=== PATIENT | female | born 1935 | race Caucasian/White ===

== ENCOUNTER → 2018-05-23 | Outpatient (CLI) | payer MEDICARE, OTHER | END | disposition home or self-care (01) | LOC: PCVCCLINIC 15:42 | PROVIDERS: ATTEND Internal Medicine Cardiovascular Disease | DX: R06.02 Shortness of breath (principal); I10 Essential (primary) hypertension; R53.83 Other fatigue; I48.0 Paroxysmal atrial fibrillation; E78.5 Hyperlipidemia, unspecified; M79.604 Pain in right leg; M79.605 Pain in left leg; Z86.79 Personal history of other diseases of the circulatory system; Z78.0 Asymptomatic menopausal state; Z87.891 Personal history of nicotine dependence | CPT/HCPCS: 36415; 80061; 93005; G0463 ==

== ENCOUNTER → 2018-06-16 | Outpatient (CLI) | payer MEDICARE, OTHER ==
[~2018-06-16] MED LIST: REGADENOSON 0.4 MG/5 ML DISP.SYRIN. IV ONE
--- NOTE | 2018-06-16 17:25 | PCVCIMAG ---
APPROVED REPORT Study performed: 06/16/2018 11:16:37 EXAM: Comprehensive 2D, Doppler, and color-flow Echocardiogram Patient Location: Echo lab Status: routine BSA: 1.68 HR: 73 bpmBP: 136/64 mmHg Rhythm: Atrial Fibrillation Other Information Study Quality: Adequate Risk Factors: Cardiac Risk Factors: HTN Indications Atrial Fibrillation 2D Dimensions IVSd: 14.31 (7-11mm) LVDd: 40.86 mm PWd: 10.74 (7-11mm)Ascending Ao: 37.11 (22-36mm) LVDs: 28.88 (25-40mm) Left Atrium: 41.71 (27-40mm) Aortic Root: 33.72 mm LV Single Plane 4CH: 53.58 % LV Single Plane 2CH: 51.10 % Biplane EF: 50.8 % Volumes Left Atrial Volume (Systole) Single Plane 4CH: 53.34 mLSingle Plane 2CH: 58.22 mL LA ESV Index: 33.00 mL/m2 Aortic Valve AoV Peak [place].: 1.83 m/s AO Peak Gr.: 13.80 mmHgLVOT Max P.88 mmHg LVOT Max V: 1.10 m/s AI Vmax: 4.70 m/s AI [place]: 3.03 m/s2 AI PHT: 449.35 ms Mitral Valve E/A Ratio: 0.7 MV Decel. Time: 299.45 ms MV E Max [place].: 0.98 m/s MV A [place].: 1.34 m/s MV Max [place].: 6.14 m/s MV Mean [place].: 4.92 m/s IVRT: 103.81 ms Pulmonary Valve PV Peak [place].: 0.93 m/sPV Peak Gr.: 3.45 mmHg Pulmonary Vein P Vein S: 0.26 m/sP Vein A: 0.40 m/s P Vein D: 0.40 m/sP Vein A Dur.: 141.9 msec P Vein S/D Ratio: 0.65 Tricuspid Valve TR Peak [place].: 2.96 m/s TR Peak Gr.: 35.24 mmHg Left Ventricle The left ventricle is normal size. There is normal LV segmental wall motion. Mild concentric left ventricular hypertrophy. Left ventricular systolic function is normal. The left ventricular ejection fraction is within the normal range. LVEF is 55%. Grade I - abnormal relaxation pattern. Right Ventricle The right ventricle is normal size. The right ventricular systolic function is normal. Atria Left atrium is mildly dilated. Right atrium is mildly dilated. Aortic Valve Aortic valve is bicuspid with calcified raphe. Mild to moderate aortic regurgitation. There is no aortic valvular stenosis. Mitral Valve The mitral valve is normal in structure. Moderate mitral regurgitation. No evidence of mitral valve stenosis. Tricuspid Valve The tricuspid valve is normal in structure. Mild tricuspid regurgitation with PAP of 42 mmHg. Pulmonic Valve The pulmonary valve is normal in structure. Trace pulmonic regurgitation. Great Vessels The aortic root is normal in size. IVC is normal in size and collapses >50% with inspiration. Pericardium There is no pericardial effusion. There is no pleural effusion. <Conclusion> The left ventricle is normal size. Mild concentric left ventricular hypertrophy. LVEF is 55%. Grade I - abnormal relaxation pattern. The right ventricle is normal size. Left atrium is mildly dilated. Right atrium is mildly dilated. Aortic valve is bicuspid with calcified raphe. Mild to moderate aortic regurgitation. Moderate mitral regurgitation. Mild tricuspid regurgitation with PAP of 42 mmHg. The aortic root is normal in size. There is no pericardial effusion.
--- NOTE | 2018-06-16 20:21 | PCVCIMAG ---
EXAM: BILATERAL LOWER EXTREMITY ARTERIAL DUPLEX INDICATION: Peripheral Arterial Disease. Leg pain. FINDINGS: Right Leg: Common femoral and profunda femoral arteries are patent. 40-50% stenosis distal [place] superficial femoral artery. The popliteal artery is patent. The anterior tibial, peroneal, and posterior tibial arteries are patent. Left Leg: Common femoral and profunda femoral arteries are patent. Increased systolic velocity 447 cm/s proximal [place] popliteal artery consistent with 90% stenosis. Superficial femoral artery is patent. The anterior tibial, peroneal, and posterior tibial arteries are patent. IMPRESSION: 40-50% stenosis distal [place] right superficial femoral artery. 90% stenosis proximal [place] left popliteal artery. LOC:[id number]
--- NOTE | 2018-06-17 10:39 | PCVCIMAG ---
APPROVED REPORT Imaging Protocol: Rest Tc-99m/Stress Tc-99m 1 day Study performed: 06/16/2018 12:45:08 Indication: PAF, SOA, Progressive Excercise Intolerance and Fatigue Patient Location: Out-Patient Stress Nurse: Shannon Morrow RN, Teresa Brandon RN NM Tech:ADI Weaver Ht: 5 ft 4 in Wt: 140 lbs BSA: 1.68 m2 HR: 90 bpm BP: 142/72 mmHg BMI: 24.0 Rhythm: Sinus Rhythm, PVC Medical History Medical History: Age, Hyperlipidemia, HTN, Former Smoker Medications: Aspirin, Amlodipine, Prilosec, Remeron Allergies: No known drug allergies Exercise History: Sedentary Physical Disabilities: Toes Amputation Resting Data Rest SPECT myocardial perfusion imaging was performed in supine position 45 minutes following the intravenous injection of 10.8 mCi of Tc-99m Sestamibi. Time of rest injection: 1200 Date: 06/16/2018 Administration Route: IV Administration Site: Right AC Pharmacologic Stress Pharmacologic stress test was performed by injecting Regadenoson 0.4 mg IV push over 10-15 seconds immediately followed by the intravenous injection of 34.8 mCi of Tc-99m Sestamibi. Time of stress injection: 1315 Date: 06/16/2018 Administration Route: IV Administration Site: Right AC Gated Stress SPECT was performed 45 minutes after stress injection. The images were gated to evaluate regional wall motion and calculate left ventricular ejection fraction. Stress Test Details Stress Test: Pharmacologic stress testing performed using 0.4 mg of regadenoson per 5 mL given IV over 10 seconds. Reason for pharmacologic stress test: Toes amputated. HRMax Heart Rate (APMHR): 135 bpm Resting HR: 90 bpmTarget HR (85% APMHR): 114 bpm Max HR Achieved: 111 bpm % of APMHR: 82 Recovery HR: 90 bpm BP Resting BP: 142/72 mmHg Max BP: 173/71 mmHg Recovery BP: 139/68 mmHg ECG Resting ECG: Sinus Rhythm Stress ECG: Sinus Rhythm ST Change: None Arrhythmia: PVC's Recovery ECG: Sinus Rhythm Clinical Reason for Termination: Completed protocol Stress Symptoms: Abdominal Discomfort, Dyspnea, Lightheaded Symptoms resolved with caffeine. Stress ECG Conclusion ECG: Non-ischemic Study Quality Study: Good Study Data Post stress, the left ventricular ejection was 67%.. SSS: 2 SRS: 3 SDS: 1 TID = 1.09. 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 Post stress, the left ventricular ejection was 67%. No prior study available for comparison. Interpreted by: Tima Gautam MD Electronically Approved: 06/16/2018 20:02:54 <Conclusion> ECG: Non-ischemic
== END | disposition home or self-care (01) ==
LOC: PCVCIMAG 10:15
PROVIDERS: ATTEND Internal Medicine Cardiovascular Disease
DX: I08.3 Combined rheumatic disorders of mitral, aortic and tricuspid valves (principal); I48.0 Paroxysmal atrial fibrillation; I73.9 Peripheral vascular disease, unspecified; I10 Essential (primary) hypertension; R53.83 Other fatigue; Z87.891 Personal history of nicotine dependence
CPT/HCPCS: 78452; 93017; 93306; 93925; A9500; J2785

== ENCOUNTER → 2018-07-24 | Outpatient (CLI) | payer MEDICARE, OTHER | END | disposition home or self-care (01) | LOC: PCVCCLINIC 12:30 | PROVIDERS: ATTEND Internal Medicine Cardiovascular Disease | DX: I25.10 Atherosclerotic heart disease of native coronary artery without angina pectoris (principal); I10 Essential (primary) hypertension; I73.9 Peripheral vascular disease, unspecified; E78.00 Pure hypercholesterolemia, unspecified; I48.0 Paroxysmal atrial fibrillation; R53.83 Other fatigue; I48.91 Unspecified atrial fibrillation; Z79.01 Long term (current) use of anticoagulants | CPT/HCPCS: 36415; 85610 ==

== ENCOUNTER → 2018-10-10 | Outpatient (CLI) | payer MEDICARE, OTHER ==
--- NOTE | 2018-10-10 12:17 | PCVCIMAG ---
EXAM: BILATERAL CAROTID DUPLEX INDICATION: Carotid Occlusive Disease. FINDINGS: Doppler Measurements (centimeters per second): RIGHT: Peak CCA-52, Peak ECA-67, Diastolic ICA-21, Peak ICA-68, ICA/CCA Ratio-1.3. LEFT: Peak CCA-72, Peak ECA-111, Diastolic ICA-20, Peak ICA-82, ICA/CCA Ratio-1.1. RIGHT CAROTID: The carotid bulb has mild plaque. The proximal internal carotid artery shows <40% stenosis. The common carotid artery shows no significant stenosis. The external carotid artery shows no significant stenosis. LEFT CAROTID: The carotid bulb has mild plaque. The proximal internal carotid artery shows <40% stenosis. The common carotid artery shows no significant stenosis. The external carotid artery shows no significant stenosis. Antegrade flow in both vertebral arteries. IMPRESSION: <40% stenosis of the right internal carotid artery with mild plaque. <40% stenosis of the left internal carotid artery with mild plaque. LOC:[id number]
--- NOTE | 2018-10-10 12:19 | PCVCIMAG ---
EXAM: LEFT LOWER EXTREMITY ARTERIAL DUPLEX INDICATION: Peripheral Arterial Disease. Leg pain. FINDINGS: Left Leg: Common femoral and profunda femoral arteries are patent. Superficial femoral artery and popliteal arteries are patent. Previous site of intervention upper popliteal artery remains patent. Unchanged occlusion distal posterior tibial artery. The anterior tibial and peroneal arteries are patent. IMPRESSION: No significant superficial femoral artery or popliteal artery stenoses. Previous site of intervention upper left popliteal artery remains patent. Unchanged occlusion distal left posterior tibial artery. LOC:[id number]
== END | disposition home or self-care (01) ==
LOC: PCVCIMAG 11:00
PROVIDERS: ATTEND Nuclear Medicine Nuclear Cardiology
DX: I65.23 Occlusion and stenosis of bilateral carotid arteries (principal); I70.202 Unspecified atherosclerosis of native arteries of extremities, left leg; I77.9 Disorder of arteries and arterioles, unspecified; I25.10 Atherosclerotic heart disease of native coronary artery without angina pectoris; I10 Essential (primary) hypertension; E78.00 Pure hypercholesterolemia, unspecified
CPT/HCPCS: 93880; 93926; G0463

== ENCOUNTER → 2018-10-27 | Outpatient (CLI) | payer MEDICARE, OTHER | END | disposition home or self-care (01) | LOC: PCVCCLINIC 10:00 | PROVIDERS: ATTEND Internal Medicine Cardiovascular Disease | DX: I48.0 Paroxysmal atrial fibrillation (principal); I25.10 Atherosclerotic heart disease of native coronary artery without angina pectoris; I73.9 Peripheral vascular disease, unspecified; I10 Essential (primary) hypertension; E78.00 Pure hypercholesterolemia, unspecified; Z79.899 Other long term (current) drug therapy | CPT/HCPCS: 36415; 80061; 93005; G0463 ==

== ENCOUNTER → 2019-03-15 | Outpatient (CLI) | payer MEDICARE, OTHER ==
--- NOTE | 2019-03-15 10:02 | PCVCIMAG ---
EXAM: BILATERAL LOWER EXTREMITY ARTERIAL DUPLEX INDICATION: Peripheral Arterial Disease. Leg pain. FINDINGS: Right Leg: Common femoral and profunda femoral arteries are patent. Superficial femoral artery is patent. 40-50% stenosis [place] popliteal artery. Occlusion of the distal posterior tibial artery. The anterior tibial and peroneal arteries are patent. Left Leg: Common femoral and [place] femoral arteries are patent. Superficial femoral artery and popliteal artery are patent. Occlusion of the distal posterior tibial artery. Anterior tibial and peroneal arteries are patent. IMPRESSION: Unchanged occlusion of the distal right posterior tibial artery. Otherwise no flow limiting stenosis in the right lower extremity. Again seen is 40-50% stenosis [place] right popliteal artery which is not felt be flow-limiting. Unchanged occlusion of the distal left posterior tibial artery. Otherwise no flow limiting stenosis in the left lower extremity. Previous site of intervention left popliteal artery remains patent. LOC:[id number]
== END | disposition home or self-care (01) ==
LOC: PCVCIMAG 09:38
PROVIDERS: ATTEND Nuclear Medicine Nuclear Cardiology
DX: I73.9 Peripheral vascular disease, unspecified (principal); I25.10 Atherosclerotic heart disease of native coronary artery without angina pectoris; I10 Essential (primary) hypertension; I48.11 Longstanding persistent atrial fibrillation; E78.00 Pure hypercholesterolemia, unspecified; M10.9 Gout, unspecified; Z90.49 Acquired absence of other specified parts of digestive tract; Z90.710 Acquired absence of both cervix and uterus; Z79.899 Other long term (current) drug therapy; Z87.891 Personal history of nicotine dependence
CPT/HCPCS: 93925; G0463